=== PATIENT | male | born 1935 | race Caucasian/White ===

== ENCOUNTER 2018-02-10 06:48 | Inpatient (IN) | payer OTHER, MEDICARE ==
[2018-02-10] MEDS ORDERED: LR 1,000 ML IV ONE (06:54)
[2018-02-10] MEDS ORDERED: oxyCODONE IR 5 MG TAB PO PRN ×2 (07:44→12:14)
[2018-02-10] MEDS ORDERED: ONDANSETRON 4 MG/2 ML VIAL IVP PRN ×2 (07:44→12:14)
[2018-02-10] MEDS ORDERED: HYDROmorphONE/DILAUDID 2 MG/ML INJ IVP PRN (07:44)
[2018-02-10] MEDS ORDERED: MIDAZOLAM 2 MG/2 ML VIAL IVP ONE (07:44)
[2018-02-10] MEDS ORDERED: ALBUTEROL 3 ML DEYVIAL IH PRN (07:44)
[2018-02-10] MEDS ORDERED: NALOXONE HCL 0.4 MG/ML INJ IVP PRN (07:44)
[2018-02-10] MEDS ORDERED: fentaNYL 100 MCG/2 ML INJ IVP PRN (07:44)
[2018-02-10] MEDS ORDERED: ACETAMINOPHEN 500 MG TAB PO PRN (07:44)
[2018-02-10] MEDS ORDERED: DEXAMETHASONE 4 MG/ML VIAL IVP PRN (07:44)
--- NOTE | 2018-02-10 07:46 | PDANEPAE ---
ANE History of Present Illness L4-5 XLIF ANE Past Medical History - Cardiovascular History Hx Hypertension: Yes Hx Arrhythmias: No Hx Chest Pain: No Hx Coronary Artery / Peripheral Vascular Disease: No Hx CHF / Valvular Disease: No Hx Palpitations: No - Pulmonary History Hx COPD: No Hx Asthma/Reactive Airway Disease: No Hx Recent Upper Respiratory Infection: No Hx Oxygen in Use at Home: No Hx Sleep Apnea: No Sleep Apnea Screening Result - Last Documented: Positive Pulmonary History Comment: NITIN triggers - Neurologic History Hx Cerebrovascular Accident: No Hx Seizures: No Hx Dementia: No Neurologic History Comment: nerve pain from lower back stenosis, left > right - Endocrine History Hx Diabetes: No - Renal History Hx Renal Disorders: No - Liver History Hx Hepatic Disorders: No - Neurological & Psychiatric Hx Hx Neurological and Psychiatric Disorders: Yes Neurological / Psychiatric History Comment: anxiety - Cancer History Hx Cancer: No - Congenital Disorder History Hx Congenital Disorders: No - GI History Hx Gastrointestinal Disorders: No - Other Health History Other Health History: wears hearing aids. wears glasses. osteoarthritis - Chronic Pain History Chronic Pain: Yes (hips, knees, back) - Surgical History Prior Surgeries: left TKA. bilat AUDI's. rotator cuff repair left shoulder. lumbar spine surgery. carpel tunnel surgery. fusion right great toe. T&A. appy. bilat cataracts ANE Review of Systems Review of Systems: - Exercise capacity METS (RN): 4 METS ANE Patient History - Allergies Allergies/Adverse Reactions: No Allergies [NKDA] Allergy (Verified 01/17/18 11:25) - Home Medications Home Medications: Aspirin [Aspirin 81mg (OTC)] 81 mg PO HS 08/28/11 [Last Taken 02/03/18] [place]-3 Fatty Acids [Fish Oil 1000 mg (OTC)] 1,000 mg PO BID 08/28/11 [Last Taken 02/03/18] Pravastatin Sodium 20 mg PO HS 08/28/11 [Last Taken 02/09/18] Zolpidem Tartrate [Ambien 10 mg] 10 mg PO HS 08/28/11 [Last Taken 02/09/18] Acetaminophen [Tylenol ES 500 mg (OTC)] 1,000 mg PO TID 10/20/11 [Last Taken ] Fenofibrate [Tricor 48 MG (RX)] 48 mg PO DAILY 01/10/18 [Last Taken 02/10/18] Gabapentin [Neurontin 300 MG (*)] 300 mg PO BID 01/10/18 [Last Taken 02/10/18] Herbals/Supplements -Info Only 1 ea PO DAILY 01/10/18 [Last Taken 02/03/18] Naproxen Sodium [Aleve 220 MG (*)] 220 mg PO BID 01/10/18 [Last Taken 02/03/18] Sertraline HCl [Zoloft 50mg (*)] 50 mg PO DAILY 01/10/18 [Last Taken 02/10/18] - NPO status NPO Since - Liquids (Date): 02/10/18 NPO Since - Liquids (Time): 00:00 NPO Since - Solids (Date): 02/10/18 NPO Since - Solids (Time): 00:00 - Smoking Hx Smoking Status: Never smoked - Family Anes Hx Family Hx Anesthesia Complications: none ANE Labs/Vital Signs - Vital Signs Blood Pressure: 137/74 Heart Rate: 71 Respiratory Rate: 15 O2 Sat (%): 92 Height: 180.34 cm Weight: 97.522 kg ANE Physical Exam - Airway Neck exam: FROM Mallampati Score: Class 2 Mouth exam: normal dental/mouth exam - Pulmonary Pulmonary: clear to auscultation - Cardiovascular Cardiovascular: regular rate and rhythym - ASA Status ASA Status: II ANE Anesthesia Plan Anesthesia Plan: general endotracheal anesthesia Total IV Anesthesia: Yes
[2018-02-10] MEDS ORDERED: SURGIFLO MATRIX KIT WITH THROMBIN 8 ML TP ONE (07:50)
[2018-02-10] MEDS ORDERED: BUPIVACAINE/EPI 0.5% 30 ML SDV ONE (07:50)
[2018-02-10] MEDS ORDERED: BACITRACIN 50,000 UNITS/10 ML SYR IRR ONE (07:51)
[2018-02-10] MEDS ORDERED: TRANEXAMIC ACID 1,000 MG/10 ML VIAL ONE (07:51)
[2018-02-10] MEDS ORDERED: PROPOFOL/EMULSION 500 MG/50 ML BOTTLE IV ONE ×3 (08:00)
[2018-02-10] MEDS ORDERED: TRANEXAMIC ACID 1,000 MG in NS 100 ML IV ONE (08:02)
[2018-02-10] MEDS ORDERED: ceFAZolin 2 GM/DEXTROSE 100 ML IV ONE (08:02)
[2018-02-10] MEDS ORDERED: GABAPENTIN 300 MG CAP PO ONE (08:02)
[2018-02-10] MEDS ORDERED: ACETAMINOPHEN 500 MG TAB PO ONE (08:02)
--- NOTE | 2018-02-10 08:02 | PDHPUP ---
History & Physical Update H&P update statement: This history and physical update is based on an assessment of the patient which was completed after admission or registration (within 24 hours), but prior to the surgery/procedure. H&P update: H&P reviewed & patient examined, no change in patient's condition since H&P completed
[2018-02-10] MEDS ORDERED: REMIFENTANIL HCL 1 MG VIAL ONE ×4 (08:03→10:42)
[2018-02-10] MEDS ORDERED: SUCCINYLCHOLINE CHLORIDE 200 MG/10 ML SYR IVP ONE (08:08)
[2018-02-10] MEDS ORDERED: ONDANSETRON 4 MG/2 ML VIAL ONE (08:09)
[2018-02-10] MEDS ORDERED: DEXAMETHASONE 4 MG/ML VIAL ONE ×2 (08:09)
[2018-02-10] MEDS ORDERED: ePHEDrine SULFATE 25 MG/5 ML SYR ONE (08:44)
[2018-02-10] MEDS ORDERED: VANCOMYCIN 1 GM VIAL ONE (10:37)
[2018-02-10] MEDS ORDERED: HYDROmorphONE/DILAUDID 2 MG/ML INJ ONE (10:43)
--- NOTE | 2018-02-10 11:37 | SUROPNOTE ---
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 Bilateral L4 pars insufficiency fractures Lumbar spinal stenosis Post-operative Diagnosis: Same Procedures: Minimally invasive extreme lateral interbody fusion (XLIF) Anterior column plate and screw fixation Minimally Invasive Posterior Lumbar Fusion with Instrumentation Minimally Invasive Transforaminal Decompression Reduction of bilateral pars insufficiency fractures Structural use of allograft Use of intra-operative fluoroscopy Use of intra-operative neuromonitoring, including EMG and SSEP modalities Use of a surgical microscope Surgeon: Salvador Hercules MD Assist: Tara White Anesthesia: General endotracheal anesthesia Findings: As expected spondylolisthesis, spinal stenosis, facet hypertrophy Estimated Blood Loss: 100mL Drains: Hemovac sewn to skin Specimens: None Complications: None Condition: Transferred to PACU in stable condition Implants: NuVasive XLIF Cage: 55mm x 10 deg x 10mm x 22 Anterior Column Plate: modulus incorporated plate Anterior Screws: 55mm x 5.5mm bolt Posterior Pedicle Screws: 6.5x50 (L5), 6.5x45 (L4 Dalton: 45mm Allograft: 4mL allograft used structurally in the disc space and interbody cage Indications: This patient was seen in my office and diagnosed with degenerative spondylolisthesis and spinal stenosis. I have explained all options of treatment for the patient, and the patient has elected to proceed with operative management. I have explained all risks, benefits, and alternatives of the proposed procedure. The risks that we have discussed include , blindness, nerve damage, infection, dural tear, failure of surgery to alleviate pre-operative symptoms, nonunion, and possible need for further operation. I explained separately the risks of allograft, including infection and disease transfer. I specifically discussed the additional risks of XLIF, including but not limited to vascular damage, femoral nerve radiculopathy, or weakness. In addition to the aforementioned procedure, I discussed with the patient that other procedures may be indicated during the course of surgery that would be considered in the patients best interest. The patient expressed understanding of this and agreed to move forward with operative management. Pre-operative: The proposed incision sites were marked in the pre-operative holding area by me. The patient was then taken to the operating room in stable condition. Following smooth induction of general anesthesia, the patient was positioned in a lateral decubitus position on a flat OR table with all down surfaces well- padded. The patient was then prepped and draped in the usual sterile fashion. Pre-operative antibiotics were administered within one hour of the incision. A surgical timeout was performed, and all parties involved in the procedure were in agreement on the correct patient, location, and procedure to be performed. Level localization and spinal pause: After the table was broken to allow for appropriate access to the disk space, x- rays were taken to make sure that the operative L4/5 disc space was properly marked out. Once the disk space was marked out from a lateral approach, a local anesthetic with epinephrine was injected into the area and approximately a 4cm incision was then made over the side overlying the disk directly lateral to it. Subdermal fat was then explored and moved aside. The external and internal oblique muscles were then dissected bluntly using finger and Metzenbaum scissors. The retroperitoneal space was then entered using manual palpation. The transverse process and thedisk space of the operative level was palpated. A wire was then placed into the operative disc space and confirmed on both AP and lateral radiographs. Serial dilators werethen placed in position here to allow for an XLIF retractor. The XLIF retractor was then placed over the operative disk space. This was again confirmedby AP and lateral radiographs and then a nerve detection system was used to ensure that the lumbar plexus was not violated. Placement of XLIF interbody cage, reduction of spondylolisthesis and bilateral pars insufficiency fractures: A posterior pablito was then placed into the posterior third of the vertebral body and retracted forward oranteriorly. An ALL protector was then placed anteriorly over the front of the anterior vertebral bodies. The disk space was then incised and the annulus fibrosis was removed. Serial disk preparation tools including a House curette, box cutters, #5 Kerrison and pituitary rongeur was used to prep the disk space. This was also flushed several times to ensure that the disk space was empty of any remaining debris. At this time, a trial was then placed andthe appropriately sized cage was selected. The cage wasthen packed with 5 mL of allograft bone and this was gently malleted in place and again confirmed by both AP and lateral radiographs. The agricultural engineer was then removed. Attention was then turned towards the plate placement. At this time, an anterior column plate was then placed laterally over the cage itself. Screw holes were then drilled into both the cephalad and caudal vertebrae levels. Appropriately-sized screws were then placed into both vertebrae with just enough purchase for a bicortical bite within the vertebral body. Again, radiographs confirmed both placement of the graft and the screws. The spondylolisthesis and pars insufficiency fractures were noted to be reduced. At this time, all monitoring was noted to be stable. Closure of lateral incision: Attention was then turned towards closure. Several #1 Vicryl sutures were used to reapproximate the fascia overlying the oblique muscles. A 2-0 Monocryl sutures were then used to repair the subcutaneous tissues and a 4-0 Monocryl was used to repair the skin. Glue was then used over the top of this and this surgical site was thensealed completely. Patient transfer: The patient was then carefully transferred to a Kalpesh table, and positioned prone with all down surfaces well-padded. The patient was then prepped and draped in the usual sterile fashion. A second surgical timeout was performed, and all parties involved in the procedure were in agreement on the correct patient, location, and procedure to be performed. Pedicle screw placement: All pedicle screws were placed in a percutaneous fashion. Using biplanar fluoroscopy, a Jamshidi needle was gently malleted into place at the appropriate pedicle screw starting position at the lateral border of the facet on the AP view and mid-point of the pedicle on lateral view. The needle was advanced just past the pedicle into the vertebral body. At this point, a neurostimulating probe was attached to the end of the needle and the potentials were noted to be above 20 milliamps. The central trocar was then removed, and a blunt K-wire was passed into the cannulated pedicle. The Jamshidi was then removed completely, with the K-wire anchored in the vertebral body. A tap was then used up to a size that was 1mm below the final screw size based on pre- operative templating. An appropriately-sized screw was placed at each level and confirmed fluoroscopically. Two headless shanks were placed, which would allow for facile visualization of bony landmarks and safe decompression. All screws were then stimulated. Each screw was stimulated and potentials were all above 15 milliAmps (15mA at L5 and above 20mA at L4). Posterior approach (cephalad level nerve root to be fused): A pointed dilator was introduced onto the lateral pars of the caudal level to be fused. Serial dilators were used and the XLIF retractor system was then docked. Positioning was confirmed parallel to the disc space to be fused by lateral fluoroscopy. Transforaminal decompression: Using a transforaminal decompression technique and taking care to avoid breach into the previously created pedicle tract, the inferior facet of the cephalad level to be fused, and the superior facet of the caudal level to be fused were removed using a high speed levon and Kerrison rongeurs. Special care was taken to not use the high speed levon in proximity to the underlying nerve root. Using a [place] #4, the nerve was protected cephalad and Kambins triangle was identified and decompressed (bordered by the nerve root cephalad and the thecal sac medially). Dalton and set screw placement: At this time, associated tulip heads were placed into the screws with associated reduction towers. Using a percutaneous dalton passer, an appropriately- sized dalton was then placed into the pedicle screw heads with ample dalton extending from either end. To ensure that the rods were appropriately positioned, three checks were performed: the rods were visually inspected, the insertion handle was torqued and both towers were visualized to move, and a lateral radiograph was taken to ensure an appropriate length to the rods. At this point, a lateral radiograph was taken and reduction of the vertebral insufficiency fractures was noted. Of note, there were no changes in the SSEP and EMG monitoring during this maneuver. Set screws were then placed into the cephalad pedicle screws over the rods, and all set screws were tensioned using a torque-limited screwdriver. Closure: The surgical field was then copiously irrigated with sterile saline. Vancomycin powder was then applied to the surgical field. A small drain was placed deep to the fascia and brought out of the skin superior and laterally. The drain was then sewn to skin. #1 vicryl suture were used to repair the fascia in an interrupted fashion. Then 2-0 interrupted sutures were used to repair the dermal layer, and a separate 3-0 monofilament suture was used to repair the subcutaneous layer in a running fashion. All sutures used were absorbable. Topical adhesive was then applied to the skin and allowed to dry. A sterile island dressing was applied over the surgical incision. A surgical count was performed before initiation of closure and following the procedure, and all were correct. I was present for the entire procedure. Surgical microscope use: A surgical microscope was utilized throughout the decompressive portion of this case. This was deemed necessary for safe and accurate surgical decompression of affected nerve roots. Neuromonitoring: SSEP and EMG were used throughout the case from incision until the beginning of closure. There were no significant changes throughout the case, and SSEP signals were at their pre-surgical baseline levels before surgical closure was initiated. customer care assistant: A ophthalmic surgical assistant was used throughout the case, and deemed necessary for safe neural retraction, hemostasis, and suction. Recovery: The patient was extubated uneventfully in the operating room. The patient was taken to the recovery room in stable condition. Sequential compression devices for VTE prophylaxis were applied to the patients lower extremities, and were ordered to be used while the patient was non-ambulatory. Chemical VTE prophylaxis was considered to be contraindicated for this patient because of the risk of bleeding near the epidural space. Salvador Hercules MD
[2018-02-10] MEDS ORDERED: MAGNESIUM HYDROXIDE 30 ML UDCUP PO PRN (12:14)
[2018-02-10] MEDS ORDERED: POLYETHYLENE GLYCOL 3350 17 GM PKT PO PRN (12:14)
[2018-02-10] MEDS ORDERED: HYDROmorphONE/DILAUDID 1 MG/ML INJ IVP PRN (12:14)
[2018-02-10] MEDS ORDERED: ONDANSETRON DISINTEGRATING 4 MG TAB PO PRN (12:14)
[2018-02-10] MEDS ORDERED: LACTULOSE 20 GM/30 ML UDCUP PO PRN (12:14)
[2018-02-10] MEDS ORDERED: BISACODYL 10 MG SUPP PR PRN (12:14)
[2018-02-10] MEDS ORDERED: diphenhydrAMINE 25 MG CAP PO PRN (12:14)
--- NOTE | 2018-02-10 12:37 | POSTANESTH ---
Post Anesthetic Evaluation Cardiovascular Status: Normal, Stable Respiratory Status: Normal, Stable Level of Consciousness/Mental Status: Can Participate in Eval, Alert and Oriented Pain Control: Adequate, Prn Tx Ordered Nausea/Vomiting Control: Adequate, Prn Tx Ordered Complications Possibly Related to Anesthesia: None Noted
[2018-02-10] MEDS: ACETAMINOPHEN 500 MG TAB PO SCH ×2 (14:56→21:16)
[2018-02-10] MEDS ORDERED: ZOLPIDEM TARTRATE 5 MG TAB PO PRN (15:23)
--- NOTE | 2018-02-10 17:03 | PDMN ---
Medical Necessity Medical necessity: [facility] IP only surgery; cpt 31483 Lumbar Fusion (L4/5 XLIF & MIS PSF)
[2018-02-10] MEDS: FAMOTIDINE 20 MG TAB PO SCH (21:15)
[2018-02-10] MEDS: SENNOSIDES/DOCUSATE SODIUM TAB PO SCH (21:15)
[2018-02-11 05:11] LABS: PLATELET COUNT 231 10^3/uL (150-400)
[2018-02-11] MEDS: ACETAMINOPHEN 500 MG TAB PO SCH (05:56)
[2018-02-11] MEDS ORDERED: PRAVASTATIN SODIUM 20 MG TAB PO SCH (09:00)
[2018-02-11] MEDS: SENNOSIDES/DOCUSATE SODIUM TAB PO SCH (09:03)
[2018-02-11] MEDS: FAMOTIDINE 20 MG TAB PO SCH (09:04)
--- NOTE | 2018-02-11 09:22 | GPROG ---
I saw the patient on my morning rounds today. He is doing quite well. He offers no new complaints. He took 1 Percocet overnight and his pain is extremely well controlled. PHYSICAL EXAM: His dressings are clean, dry, and intact. His drain has minimal output. His Grayson h as a very mild amount of bloody urine in it, but it is really just tingled. The patient is neurologi shana intact. He has no sensory, motor, or vascular deficits. IMPRESSION: Postoperative day 1 status post L4-5 (XLIF), extreme lateral interbody fusion, (MIS), mi nimally invasive surgery, (PSF), posterior spinal fusion. The patient did quite well from the procedure. I am okay to let him go whenever he clears Physical T herapy and his pain is controlled on an oral regimen. Discontinue his Grayson as well as his drain leonora orta. /[id number]/MODL
[2018-02-11 11:28] VITALS: BP 115/61
--- NOTE | 2018-02-11 14:41 | ASMTCMCOM ---
CM Note CM Note Notes: Pt had planned surgery for spinal stenosis. Pt resides with spouse. PT rec home. Pt medically stable for d/c. No CM d/c needs identified. Date Signed: 02/11/2018 02:40 PM Electronically Signed By:J LUIS Haq
--- NOTE | 2018-02-11 14:42 | ASMTLACE ---
JENNIF[facility] Length of stay for Answers: 2 days current admission Acuity / Level of Answers: Yes Care: Did the patient have an inpatient admission? Comorbidities - select Answers: Opioid dependence all that apply / Chronic pain Other Notes: HTN # of Emergency department Answers: 1-2 visits in the last 6 months Social determinants Answers: Mental health diagnosis (anxiety, depression, pers onality disorders, etc.) Score: 14 Date Signed: 02/11/2018 02:41 PM Electronically Signed By:J LUIS Haq
--- NOTE | 2018-02-11 16:50 | GDS ---
On 02/10/18, patient underwent a Left L4/5 XLIF and right MIS PSF L4/5 without complication. He did extremely well and his pain was well-controlled. His pre- op leg pain was resolved. He progressed well with physical therapy, was able to ambulate and pain was controlled on oral regimen. The patient was discharged home safely. For discharge he knows that he is not to bend, lift, or twist for the next 6 weeks, and to wear his back brace for trips that are longer than to the bathroom and back. He is to keep the dressing on for a day, he can remove them after a day and then is allowed to shower after taking the dressings off. He has my cell if any further questions arise. He also has an entire pre-surgical packet which answers any remaining possible questions. /[id number]/MODL MTDD
== END 2018-02-11 13:22 | disposition home or self-care (01) | DRG 460 ==
LOC: F3N 06:48
PROVIDERS: ADMIT Orthopaedic Surgery Orthopaedic Surgery of the Spine; ATTEND Orthopaedic Surgery Orthopaedic Surgery of the Spine
PROC: 00NY0ZZ Release Lumbar Spinal Cord, Open Approach (ICD-10-PCS; principal; 2018-02-10 08:15)
PROC: 01NB0ZZ Release Lumbar Nerve, Open Approach (ICD-10-PCS; principal; 2018-02-10 08:15)
PROC: 4A1004G Monitoring of Central Nervous Electrical Activity, Intraoperative, Open Approach (ICD-10-PCS; principal; 2018-02-10 08:15)
PROC: 0SG00A0 Fusion of Lumbar Vertebral Joint with Interbody Fusion Device, Anterior Approach, Anterior Column, Open Approach (ICD-10-PCS; principal; 2018-02-10 08:15)
DX: M47.896 Other spondylosis, lumbar region (principal); M51.36 Other intervertebral disc degeneration, lumbar region; M43.16 Spondylolisthesis, lumbar region; M48.061 Spinal stenosis, lumbar region without neurogenic claudication; Z23 Encounter for immunization; I10 Essential (primary) hypertension; G47.33 Obstructive sleep apnea (adult) (pediatric)
CPT/HCPCS: 97161-GP; 97165-GO; C1713; C1762; G8978-GP-CI; G8979-GP-CI; G8980-GP-CI; G8987-GO-CI; G8988-GO-CI; G8989-GO-CI; J0330; J0690; J1100; J1170; J2250; J2405; J2704; J3370